=== PATIENT | male | born 1945 | race Caucasian/White ===

== ENCOUNTER 2018-09-05 05:56 | Inpatient (IN) ==
[2018-09-04 17:29] LABS: Hematocrit [HCT] 40.7 % (42.0-52.0); Hemoglobin [HGB] 13.4 g/dL (14.0-18.0); MEAN CORPUSCULAR HEMOGLOBIN 33.4 PG (27-31); MEAN CORPUSCULAR HGB CONC 32.9 g/dL (33-37); MEAN CORPUSCULAR VOLUME 101.5 FL (80-90); MEAN PLATELET VOLUME 9.6 FL (7.4-12.2); RED BLOOD COUNT 4.01 10^6/uL (4.70-6.10)
[2018-09-05] MEDS ORDERED: Lactated Ringers 1,000 ML PRIMARY IV SCH ×2 (06:00→12:59)
[2018-09-05] MEDS ORDERED: LIDOCAINE W/ SODIUM BICARB 0.5 ML SYR SUBD PRN (06:00)
[2018-09-05] MEDS ORDERED: Nasal Sanitizer POPSWAB ampule 3 AMP (Nozin) PREOP DOSE ENOS SCH (06:00)
[2018-09-05] MEDS ORDERED: ceFAZolin Inj 2gm (Premix) 2 GM/50 ML BAG IV ONE ×2 (06:00→06:06)
[2018-09-05] MEDS ORDERED: Lactated Ringers 1,000 ML PRIMARY IV ONE ×3 (06:06→14:54)
[2018-09-05] MEDS ORDERED: LIDOCAINE W/ SODIUM BICARB 0.5 ML SYR ONE (06:06)
[2018-09-05] MEDS ORDERED: MIDAZOLAM 5 MG/1 ML ONE (06:23)
[2018-09-05] MEDS ORDERED: fentaNYL Inj 250 MCG/5 ML VIAL ONE ×2 (06:23→08:18)
[2018-09-05] MEDS ORDERED: BUPIVACAINE 0.25% W/ EPI - 10 ML VIAL ONE (06:24)
[2018-09-05] MEDS ORDERED: PROPOFOL 10 MG/1 ML (200 MG/20 ML) VIAL IV ONE (06:25)
[2018-09-05] MEDS ORDERED: Acetaminophen 1000mg Inj 1,000 MG/100 ML VIAL IV ONE (06:37)
[2018-09-05] MEDS ORDERED: LIDOCAINE 2%/ EPI 1:200,000 - 20 ML VIAL ONE (06:37)
[2018-09-05] MEDS ORDERED: LIDOCAINE MPF 2% - 5 ML (20 MG/1 ML) ONE (06:49)
[2018-09-05] MEDS ORDERED: ROCURONIUM 10 MG/1 ML - 5 ML VIAL IVP ONE (06:50)
[2018-09-05] MEDS ORDERED: FAMOTIDINE 20 MG/2 ML VIAL IVP ONE (06:50)
[2018-09-05] MEDS ORDERED: KETAMINE HCL 100 MG/2 ML SYRINGE IV ONE (06:50)
[2018-09-05] MEDS ORDERED: Ketorolac Inj 30 MG, Morphine Inj (Ortho Cocktail) 5 MG, BUPivacaine Inj 0.25% PF 150 MG SPLASH ONE ×3 (06:57)
[2018-09-05] MEDS ORDERED: LORazepam 2 MG/1 ML VIAL ONE (07:01)
[2018-09-05] MEDS ORDERED: BACITRACIN 50,000 UNIT VIAL IRRIG ONE (07:01)
[2018-09-05] MEDS ORDERED: BUPivacaine Liposome/PF (Exparel) Inj 20ml vial INFIL ONE (07:02)
[2018-09-05] MEDS ORDERED: Sodium Chloride 0.9% vial 60 ML ONE (07:02)
[2018-09-05 07:18] LABS: BILIRUBIN,URINE NEGATIVE (NEG); CLARITY,URINE CLEAR (CLEAR); COLOR,URINE YELLOW (Y); GLUCOSE, URINE (UA) NEGATIVE (NEG); PH,URINE 5.5 (5.0-8.5); PROTEIN,URINE NEGATIVE (NEG); UROBILINOGEN,URINE 0.2 EU/dL (0.2)
[2018-09-05 07:29] LABS: OCCULT BLOOD,URINE TRACE (NEG); WBC,URINE RARE
[2018-09-05 07:30] LABS: RENAL EPITHELIAL CELLS,URINE FEW
[2018-09-05 07:32] LABS: URINE SAMPLE TYPE CATH SPECIMEN
[2018-09-05] MEDS ORDERED: TRANEXAMIC ACID 1,000 MG / 10 ML VIAL ONE ×4 (08:08→15:45)
[2018-09-05 09:05] LABS: WBC, BODY FLUID 0.726 10*3/uL
[2018-09-05] MEDS ORDERED: ePHEDrine Inj 50 MG/ML AMP ONE (09:56)
--- NOTE | 2018-09-05 11:50 | ORTHO.OP ---
Surgery Date: 09/05/18 Preoperative Diagnosis: right malrotated TKA Postoperative Diagnosis: same Procedure: Right TKA revision Surgeon: Ángel Orlando MD Pole Truck Driver: Shannen Franklin PA-C Anesthesia Provider: Claudia Hayes CRNA Anesthesia Type: General, Regional (adductor canal block) Estimated Blood Loss (mL): 350 Fluids: 2700mL LR Pathology: synovial fluid cultures
[2018-09-05 12:07] LABS: BASOPHILS # (AUTO) 0.03 10*3/UL; BASOPHILS % (AUTO) 0.3 % (0-1); EOSINOPHILS # (AUTO) 0.11 10*3/UL; Hematocrit [HCT] 38.1 % (42.0-52.0); Hemoglobin [HGB] 12.4 g/dL (14.0-18.0); LYMPHOCYTES # (AUTO) 1.86 10*3/uL; MEAN CORPUSCULAR HEMOGLOBIN 33.2 PG (27-31); MEAN CORPUSCULAR HGB CONC 32.5 g/dL (33-37); MEAN CORPUSCULAR VOLUME 102.1 FL (80-90); MEAN PLATELET VOLUME 9.1 FL (7.4-12.2); MONOCYTES % (AUTO) 7.1 % (5-15); NEUTROPHILS # (AUTO) 8.52 10*3/UL; RED BLOOD COUNT 3.73 10^6/uL (4.70-6.10)
[2018-09-05 12:08] LABS: PLATELET MORPHOLOGY COMMENT NORMAL MORPHOLOGY (NORM); RBC MORPHOLOGY COMMENT NORMAL MORPHOLOGY (NORM); WBC MORPHOLOGY COMMENT NORMAL MORPHOLOGY (NORM)
[2018-09-05 12:21] LABS: BLOOD UREA NITROGEN 12 mg/dL (7-22); BUN/CREATININE RATIO 13.33 (6-20); SERUM ALBUMIN 3.8 g/dL (3.5-4.8)
--- NOTE | 2018-09-05 12:26 | DI ---
XR KNEE 1 OR 2 VWS 09/05/2018 11:36 AM HISTORY: [facility] DI ^right knee OA Comparison: None. Findings: Portable AP and crosstable lateral views of the right knee show postsurgical changes consis tent with total knee arthroplasty. There is no evidence of hardware fracture or loosening. Gas is not ed in the superficial soft tissues in the distribution of the joint space, an expected finding in the immediate postoperative timeframe. There is no acute fracture or dislocation. No suprapatellar joint effusion is present. Atheromatous calcifications are noted in the distribution of the vasculature. Impression: Status post right total knee arthroplasty without evidence of hardware failure or acute o sseous abnormality.
[2018-09-05] MEDS ORDERED: ONDANSETRON 4 MG/2 ML VIAL IVP PRN ×2 (12:59→15:08)
[2018-09-05] MEDS ORDERED: HYDROcodone-APAP 7.5 MG-325 MG TABLET PO PRN (12:59)
[2018-09-05] MEDS ORDERED: LIDOCAINE HCL 2 % 10 ML JELLY URO-JECT TOPICAL PRN (12:59)
--- NOTE | 2018-09-05 14:49 | CONSULT ---
Consult Note - Consult Reason for Consult: PostOp Consulation : Ortho Requesting Physician: Dr. Orlando Primary Care Provider: Bj Ceja MD - History of Present Illness History of Present Illness: This very nice 73-year-old gentleman with history of Parkinson's disease is status post the shoulder surgery was called to the bedside because the code was called no CPR was initiated patient was given Narcan and woke up and the his sats normalized on 100% nonrebreather most likely secondary to anesthesia postop with most likely underlying lung disease patient is not coherent and talkative photosensitive is recognizes has no chest pain nausea or vomiting Past Medical History Medical History: Parkinson's disease, depression, hypercholesterolemia Tobacco Use: Former Smoker In the Past 12 Months, Have Used or Abuse Any of the Following Substance: None Review of Systems - Review of Systems All Systems: Reviewed & No Additional Complaints Except as Stated Medication / Allergies Home Medications: Home Medications Medication Instructions Recorded Confirmed Type aspirin 81 mg tablet,delayed 81 mg PO QDAY 06/21/18 09/04/18 History release atorvastatin 40 mg tablet 40 mg PO QDAY #30 tab 06/21/18 09/05/18 Rx carbidopa 25 mg-levodopa 100 mg 3 tab PO TID #270 tab 06/21/18 09/05/18 Rx tablet cholecalciferol (vitamin D3) 2,000 2,000 unit PO QDAY 06/21/18 09/05/18 History unit capsule ferrous sulfate 325 mg (65 mg 325 mg PO QDAY tab 06/21/18 09/05/18 History iron) tablet fluoxetine 20 mg capsule 60 mg PO QDAY #90 cap 06/21/18 09/05/18 Rx folic acid 400 mcg tablet 0.4 mg PO QDAY 06/21/18 09/05/18 History imatinib 100 mg tablet 300 mg PO QDAY tab 06/21/18 09/05/18 History multivitamin tablet 1 tab PO QAM 06/21/18 09/05/18 History olanzapine 5 mg tablet 5 mg PO QDAY #30 tab 06/21/18 09/05/18 Rx ranitidine 150 mg tablet 150 mg PO BID #60 tab 06/21/18 09/05/18 Rx tramadol 50 mg tablet 100 mg PO Q8H PRN #90 tab 06/21/18 09/05/18 Rx vitamin B complex tablet 1 tab PO QDAY 06/21/18 09/05/18 History alprazolam 2 mg tablet 2 mg PO BID #60 tab 08/08/18 09/05/18 Rx Cephalexin [Keflex] 500 mg PO Q8HR #30 cap 09/05/18 Rx Hydrocodone/Acetaminophen 1 - 2 ea PO Q4-6H PRN #70 tab 09/05/18 Rx [Hydrocodon-Acetaminoph 7.5-325] Rivaroxaban [Xarelto] 10 mg PO DAILY #12 tab 09/05/18 Rx Allergies/Adverse Reactions: Allergies Allergy/AdvReac Type Severity Reaction Status Date / Time No Known Allergies Allergy Verified 09/05/18 13:11 Exam - Vitals Vital Signs: Vital Signs Temperature 97 F Temperature Source Temporal Artery Scan Pulse Rate [Pulse Oximeter] 72 Pulse Rate 85 Respiratory Rate 16 Blood Pressure [Left Arm] 184/100 Blood Pressure 166/86 Pulse Ox 90 Oxygen Flow Rate 5 Oxygen Delivery Method Mask-Simple Height 5 ft 6 in Weight 180 lb - General General Appearance: No Acute Distress, Cooperative - Respiratory Respiratory Exam: POSITIVE: Decreased Breath Sounds - Cardiovascular Cardiovascular Exam: POSITIVE: RRR, No Murmur, No Clicks, No Gallops, No Rubs, PMI Non-Displaced - GI/Abdominal GI/Abdominal Exam: POSITIVE: Normal Bowel Sounds, Non Tender, Non Distended, Soft, No Masses, No Hepatomegaly, No Splenomegaly, No Organomegaly - Extremities Extremities Exam: POSITIVE: No Clubbing Present, No Edema Present - Neurological Neurological Exam: POSITIVE: Alert, No Facial Droop, Speech Intact / Clear, M oves All Extremities Equally Results - Labs CBC and BMP: 09/05/18 12:07 09/05/18 12:07 Assessment and Plan - Patient Problems (1) Respiratory arrest Current Visit: Yes Status: Acute Comment: Narcan was given to the patient Dr. Mcgowan responded to the code patient awakened this soon thereafter ABG reveals some acidosis of 7.30 and a PCO2 of 48 will transfer patient to the ICU and put him on BiPAP repeat gases later this evening I discussed the case with the family and nursing on agreement most likely postanesthesia effect. Would recommend using IV Tylenol for pain control if possible with this patient troponins were also negative Code(s): R09.2 - Respiratory arrest (2) S/P shoulder surgery Current Visit: Yes Status: Acute Comment: Defer to Dr. Orlando for PTOT orders anticoagulation and pain control Code(s): Z98.890 - Other specified postprocedural states (3) Gastro-esophageal reflux Current Visit: No Status: Chronic Code(s): K21.9 - Gastro-esophageal reflux disease without esophagitis Qualifiers: (4) Hypercholesterolemia Current Visit: No Status: Chronic Code(s): E78.00 - Pure hypercholesterolemia, unspecified (5) Parkinsons Current Visit: No Status: Chronic Code(s): G20 - Parkinson's disease (6) Anxiety Current Visit: No Status: Chronic Code(s): F41.9 - Anxiety disorder, unspecified (7) Chronic lymphocytic leukemia Current Visit: No Status: Chronic Code(s): C91.90 - Lymphoid leukemia, unspecified not having achieved remission
[2018-09-05] MEDS ORDERED: Magnesium Sulfate 2gm (Premix) 2 GM/50 ML BAG IV ONE ×2 (14:50→15:08)
[2018-09-05] MEDS: HYDROcodone-APAP 7.5 MG-325 MG TABLET PO PRN (15:50)
[2018-09-05] MEDS: Lactated Ringers 1,000 ML PRIMARY IV SCH (15:51)
[2018-09-05] MEDS ORDERED: ceFAZolin Inj 2gm (Premix) 2 GM/50 ML BAG IV SCH (16:00)
--- NOTE | 2018-09-05 16:25 | EKG ---
[address] [address] Measurements Intervals [place] Rate: 73 P: 46 UT: 179 QRS: -32 QRSD: 108 T: 69 QT: 378 QTc: 405 Interpretive Statements SINUS RHYTHM WITH SINUS ARRHYTHMIA MARKED LEFT AXIS DEVIATION [QRS AXIS < -30] Compared to ECG 08/07/2018 09:50:41 Incomplete right bundle-branch block no longer present Electronically Signed On 09-06-18 15:26:42 MST by Nelson Gleason MD [email or web address]
[2018-09-05 16:48] LABS: ABG BASE EXCESS -3 MMOL/L (-2-2); ABG OXYGEN SATURATION 99 % (90-100); ABG PCO2 48 MMHG (34-38); ABG PO2 138 MMHG (65-75); ALLEN TEST N; COLLECTION SITE R RADIAL
[2018-09-05] MEDS: ceFAZolin Inj 2gm (Premix) 2 GM/50 ML BAG IV SCH ×2 (16:58→23:12)
[2018-09-05] MEDS: Carbidopa/Levodopa 25/100mg Tab PO SCH ×2 (16:58→22:40)
[2018-09-05] MEDS ORDERED: DOCUSATE 100 MG CAPSULE PO SCH (21:00)
[2018-09-05] MEDS ORDERED: ATORVASTATIN 40 MG TABLET PO SCH (21:00)
[2018-09-05] MEDS: DOCUSATE 100 MG CAPSULE PO SCH (21:26)
[2018-09-05 21:46] LABS: VENOUS PH 7.3 (7.32-7.42)
[2018-09-05 21:47] LABS: VENOUS PH 7.36 (7.32-7.42)
--- NOTE | 2018-09-05 23:24 | CRNA.PROCE ---
Nerve Block Documentation - - Type of Nerve Block Used: Right Adductor Canal Nerve Block Position for Nerve Block: Supine Moniters Used During Block: EKG, SPO2 Oxygen Supplemented: Yes Sedation Used - Enter Amount in Comment Field [ANES.SEDAT]: Midazolam (mg): Yes (1.5), Fentanyl (mcg): Yes (25) Skin Prep Used: ChloroPrep Draped: No Technique: Ultrasound Nerve Block Needle Used: 100 mm ProBlk II Local Anesthetic - Enter Amt in Comment Field [ANES.LOCNB]: 0.5 % Bupivicaine with Epinephrine 1:200,000 (mL): Yes (20cc), 2 % Xylocaine with Epinephrine 1:200,000 (mL): Yes (20cc) - - PreOp Block : Time In: 07:25 PreOp Block : Time Out: 07:37 Anesthesia Time - Other Weight: 81.647 kg Height: 5 ft 6 in Body Mass Index (BMI): 29.0
--- NOTE | 2018-09-05 23:25 | CRNA.PROGR ---
Anesthesia Time - Procedure/Recovery Time Start Date: 09/05/18 Anesthesia : Time In: 07:46 Anesthesia : Time Out: 11:57 - Block Time PreOp Block : Time In: 07:25 PreOp Block : Time Out: 07:37 - Other Weight: 81.647 kg Height: 5 ft 6 in Body Mass Index (BMI): 29.0 Physical Status: P3 Anesthesia Type: General Anesthesia : LMA
[2018-09-06] MEDS: Lactated Ringers 1,000 ML PRIMARY IV SCH (01:02)
[2018-09-06] MEDS: HYDROcodone-APAP 7.5 MG-325 MG TABLET PO PRN ×5 (03:15→20:47)
[2018-09-06 06:20] LABS: BASOPHILS # (AUTO) 0.02 10*3/UL; BASOPHILS % (AUTO) 0.2 % (0-1); EOSINOPHILS # (AUTO) 0.17 10*3/UL; EOSINOPHILS % (AUTO) 1.8 % (0-8); Hematocrit [HCT] 29.7 % (42.0-52.0); LYMPHOCYTES # (AUTO) 2.03 10*3/uL; MEAN CORPUSCULAR HEMOGLOBIN 34.2 PG (27-31); MEAN CORPUSCULAR HGB CONC 33.7 g/dL (33-37); MEAN CORPUSCULAR VOLUME 101.7 FL (80-90); MEAN PLATELET VOLUME 9.1 FL (7.4-12.2); MONOCYTES # (AUTO) 1.09 10*3/UL (0.3-0.8); MONOCYTES % (AUTO) 11.2 % (5-15); NEUTROPHILS # (AUTO) 6.36 10*3/UL; NEUTROPHILS % (AUTO) 65.7 % (50-80); RED BLOOD COUNT 2.92 10^6/uL (4.70-6.10)
[2018-09-06 06:24] LABS: PLATELET MORPHOLOGY COMMENT NORMAL MORPHOLOGY (NORM); RBC MORPHOLOGY COMMENT NORMAL MORPHOLOGY (NORM); WBC MORPHOLOGY COMMENT NORMAL MORPHOLOGY (NORM)
[2018-09-06 06:25] LABS: VENOUS PH 7.42 (7.32-7.42)
[2018-09-06 06:27] LABS: BLOOD UREA NITROGEN 11 mg/dL (7-22); BUN/CREATININE RATIO 12.22 (6-20)
--- NOTE | 2018-09-06 06:36 | PDOC(PROG) ---
Interval History: Vitals are stable good urine output uneventful night patient looks great today does not remember anything of what happened yesterday he is back to his normal self Objective : Data - Labs CBC and BMP: 09/06/18 06:17 09/06/18 06:17 Objective : Exam - General General Appearance: Cooperative - Respiratory Respiratory Exam: Clear to Auscultation - Bilaterally, Breathing Non Labored, Normal To Percussion, Normal to Percussion and Palpation - Cardiovascular Cardiovascular Exam: RRR, No Murmur, No Clicks, No Gallops, No Rubs, PMI Non- Displaced - GI/Abdominal GI/Abdominal Exam: Normal Bowel Sounds, Non Tender, Non Distended, Soft, No Masses, No Hepatomegaly, No Splenomegaly, No Organomegaly Assessment and Plan - Patient Problems (1) Respiratory arrest Current Visit: Yes Status: Acute Comment: We initiated BiPAP last evening with the night respiratory therapist after 2 hours blood gases were improved BiPAP was kept on overnight with some breaks this morning's blood gases are within normal limits. I believe the patient is stable now just on oxygen . Proxy a most likely secondary to anesthesia with most likely underlying lung disease Code(s): R09.2 - Respiratory arrest (2) S/P shoulder surgery Current Visit: Yes Status: Acute Comment: Further Dr. Orlando for PTOT and anticoagulation and pain Code(s): Z98.890 - Other specified postprocedural states (3) Gastro-esophageal reflux Current Visit: No Status: Chronic Comment: Continue PPI Code(s): K21.9 - Gastro-esophageal reflux disease without esophagitis Qualifiers: (4) Hypercholesterolemia Current Visit: No Status: Chronic Comment: Continue statin Code(s): E78.00 - Pure hypercholesterolemia, unspecified (5) Parkinsons Current Visit: No Status: Chronic Comment: Continue usual home meds Code(s): G20 - Parkinson's disease (6) Coronary artery disease Current Visit: Yes Status: Acute Comment: Organs were negative patient stress test in July 2018 showed the large fixed defect but no reversible defects Code(s): I25.10 - Atherosclerotic heart disease of [place] coronary artery without angina pectoris
[2018-09-06] MEDS: Carbidopa/Levodopa 25/100mg Tab PO SCH ×3 (08:23→14:29)
[2018-09-06] MEDS: DOCUSATE 100 MG CAPSULE PO SCH ×2 (08:24→20:47)
[2018-09-06] MEDS ORDERED: FLUoxetine 20 MG CAPSULE PO SCH (09:00)
[2018-09-06] MEDS ORDERED: FERROUS SULFATE 325 MG TABLET PO SCH (09:00)
[2018-09-06] MEDS ORDERED: ASPIRIN EC 81 MG TABLET PO SCH (09:00)
[2018-09-06] MEDS ORDERED: ENOXAPARIN SODIUM 30 MG/0.3 ML SYRINGE SUBCUT SCH ×2 (09:00)
[2018-09-06] MEDS ORDERED: OLANZapine Tab 5 MG TAB PO SCH (09:00)
[2018-09-06] MEDS ORDERED: IMATINIB MESYLATE 300 MG PO SCH (09:30)
[2018-09-06] MEDS ORDERED: ONDANSETRON 4 MG/2 ML VIAL IVP PRN (10:56)
--- NOTE | 2018-09-06 11:21 | CRNA.PROGR ---
Anesthesia Note - Progress Notes Anesthesia Progress Note: Visted with Pt yesterday after the code. He was watching TV and eating chicken. I believe his apnea is a hand buffer problem, per his . He received minimal IV short acting narcotic many hours prior to his obstruction. I visited with both of them this AM his looks fine, I put a flat malleable ice pack under his knee. He has no complaints. SERGEY Sandoval
--- NOTE | 2018-09-06 14:42 | PT.PROG ---
Progress Note Progress Note: S: pt reports he is doing fair. reports he uses a depends usually and needs a new brief because he is wet. O: nsg okay'd prior to PT. pt instructed in sit to stand 4 reps with seated rest break in between with min assist x2 and last transfer mod assist to max assist on last transfer to get into bed. pt demo significant shakiness during transfers and demo difficulty bearing weight on RLE. pt instructed to ambulate 3 steps with walker with min assist x 2, backwards steps pt requires mod assist x 2 and max assist to get back into bed with walker. pt left in bed with call light within reach and nsg notified of progress A: pt tolerated therapy fair to poor, poor activity tolerance and demo difficulty standing and requires cues for thoracic extension. pt continues to benefit from skilled therapy. P: cont per POC
--- NOTE | 2018-09-06 15:57 | PTI REPORT ---
Thank you for the referral of Yang Guillen. He was seen on 09/06/18 for an inpatient evaluation status post right total knee arthroplasty. SUBJECTIVE: The patient is a 73-year-old male. The patient reports that he lives in [facility] with his . The patient has a four wheeled walker at home that he was using previously. The patient reports he has Parkinson's disease. The patient reports pain is minimal. The patient is not on oxygen at home. PAST MEDICAL HISTORY: Past medical history can be found in the patient's medical record. OBJECTIVE FINDINGS: General observations: Nursing okayed treatment prior to PT. The patient was in ICU room. The patient is on one liter of oxygen and connected to all lines and leads. The patient was fit for an IROM brace. Bed mobility: The patient requires min assist x1 for supine to sit transfer to edge of bed. Transfers: The patient requires min assist x2 for sit to stand transfer with walker. Ambulation: The patient demonstrated unsteady standing balance and shakiness, so the patient was not instructed to ambulate at this time. The patient was instructed in weight shifting with contact guard to min assist x2 for safety. The patient was able to client care coordinator five minute intervals. ASSESSMENT: The patient is a 73-year-old male who is status post total knee replacement. The patient demonstrates decreased strength, decreased functional mobility, and decreased endurance. The patient would benefit from skilled therapy in order to improve overall mobility and to return to prior level of function. The patient's prognosis for therapy is fair. Short-Term Goals: To be met by discharge from inpatient: Patient will be independent with transfers with walker. Patient will be able to ambulate 150 feet with walker. Patient will be able to tolerate 15 minutes of activity. Long-Term Goals: To be met following discharge from inpatient: Patient will be seen by outpatient physical therapy. TREATMENT PLAN: Patient will be seen B.I.D during the week and one time per day over the weekend as an inpatient for therapeutic exercise, functional mobility, neuromuscular reeducation, gait training, and range of motion as needed. INITIAL TREATMENT: Treatment today consisted of the initial evaluation. The patient was issued an IROM brace and CPM pads. The patient was left in bed with nursing staff present. KRAEN
[2018-09-06] MEDS: ATORVASTATIN 40 MG TABLET PO SCH (20:47)
[2018-09-06] MEDS: ENOXAPARIN SODIUM 30 MG/0.3 ML SYRINGE SUBCUT SCH (20:47)
[2018-09-07 05:07] LABS: BASOPHILS # (AUTO) 0.03 10*3/UL; BASOPHILS % (AUTO) 0.3 % (0-1); EOSINOPHILS # (AUTO) 0.11 10*3/UL; Hematocrit [HCT] 30.7 % (42.0-52.0); Hemoglobin [HGB] 10.1 g/dL (14.0-18.0); LYMPHOCYTES # (AUTO) 2.27 10*3/uL; MEAN CORPUSCULAR HGB CONC 32.9 g/dL (33-37); MEAN CORPUSCULAR VOLUME 103.4 FL (80-90); MEAN PLATELET VOLUME 9.5 FL (7.4-12.2); MONOCYTES # (AUTO) 1.22 10*3/UL (0.3-0.8); MONOCYTES % (AUTO) 10.7 % (5-15); NEUTROPHILS # (AUTO) 7.74 10*3/UL; RED BLOOD COUNT 2.97 10^6/uL (4.70-6.10)
[2018-09-07 05:24] LABS: PLATELET MORPHOLOGY COMMENT NORMAL MORPHOLOGY (NORM); RBC MORPHOLOGY COMMENT NORMAL MORPHOLOGY (NORM); WBC MORPHOLOGY COMMENT NORMAL MORPHOLOGY (NORM)
[2018-09-07 05:30] LABS: BLOOD UREA NITROGEN 10 mg/dL (7-22)
[2018-09-07] MEDS: FERROUS SULFATE 325 MG TABLET PO SCH (07:43)
[2018-09-07] MEDS: Carbidopa/Levodopa 25/100mg Tab PO SCH ×3 (07:44→21:27)
[2018-09-07] MEDS ORDERED: OLANZapine Tab 5 MG TAB PO SCH (09:00)
[2018-09-07] MEDS: ENOXAPARIN SODIUM 30 MG/0.3 ML SYRINGE SUBCUT SCH ×2 (09:20→21:26)
[2018-09-07] MEDS: HYDROcodone-APAP 7.5 MG-325 MG TABLET PO PRN ×3 (09:20→21:26)
[2018-09-07] MEDS: DOCUSATE 100 MG CAPSULE PO SCH ×2 (09:21→21:28)
[2018-09-07] MEDS: ASPIRIN EC 81 MG TABLET PO SCH (09:21)
[2018-09-07] MEDS: IMATINIB MESYLATE 100 MG PO SCH (09:21)
[2018-09-07] MEDS: FLUoxetine 20 MG CAPSULE PO SCH (09:21)
--- NOTE | 2018-09-07 10:16 | ORTHO.PROG ---
Last Taken Vital Signs: Vital Signs - Last Taken Temperature 98.3 F 09/07/18 09:00 Pulse Rate 91 09/07/18 09:00 Respiratory Rate 24 09/07/18 09:00 Blood Pressure 109/56 09/07/18 09:00 Pulse Ox 95 09/07/18 09:00 Subjective: Patient is POD 2 from Right TKA revision and reportedly is doing well and pain is well controlled. Objective: Laboratory Results 09/06/18 09/07/18 09/07/18 11:30 04:05 04:05 WBC 11.38 H RBC 2.97 L Hgb 10.1 L Hct 30.7 L MCV 103.4 H MCH 34.0 H MCHC 32.9 L RDW Std Deviation 52.2 H RDW Coeff of Dm 14.3 Plt Count 161 MPV 9.5 Immature Gran % (Auto) 0.1 Neut % (Auto) 68.0 Lymph % (Auto) 19.9 [place] % (Auto) 10.7 Eos % (Auto) 1.0 Baso % (Auto) 0.3 Immature Gran # (Auto) 0.01 Neut # (Auto) 7.74 Lymph # (Auto) 2.27 [place] # (Auto) 1.22 H Eos # (Auto) 0.11 Baso # (Auto) 0.03 WBC Morphology Comment Normal morphology Plt Morphology Comment Normal morphology RBC Morph Comment Normal morphology Sodium 136 Potassium 3.9 Chloride 103 Carbon Dioxide 27 Anion Gap 6 BUN 10 Creatinine 0.8 BUN/Creatinine Ratio 12.50 Glucose 104 Calculated Osmolality 280.0 Calcium 8.7 Troponin I 0.094 H -Dressing is clean, dry, and intact. NV intact. Negative calf tenderness. -labs reviewed: H/H is stable 06/20 -hutchins discontinued Assessment: POD 2 from Right TKA revision stable and doing well Plan: * DVT ppx: discharged home with Xarelto 10mg 1 tablet daily x 10 days then transition to ASA 81mg 1 tablet daily x 6 weeks; discharge home with portable SCD devices * continue Ancef 2g IV every 8 hours while in hospital then discharge home with Keflex 500mg TID x 10 days * Wound care: discontinue dressing on POD 3 then shower as normal, do not soak incision x 4 weeks * pain meds: continue hydrocodone 7.5/325mg 1-2 tabs PO every 4-6 hours prn pain * PT: continue outpatient PT upon discharge * WBAT with walker * discharge home once cleared by PT and hospitalist * follow-up with orthopedics in 2 weeks as scheduled
--- NOTE | 2018-09-07 14:13 | PDOC(PROG) ---
Date of Service: 09/07/18 Time of Service: 14:00 Interval History: Subjective Patient was laying in bed doesn't appear in distress. He has a history of Parkinson disease, panic attack on Xanax, was diagnosed many years ago with sleep apnea however he could not tolerate his machine so is not wearing it. According to the was doing okay until a month ago when she started to notice some problem with his breathing. Also history of CML on Gleevec. He did see cardiology before surgery because of abnormal stress test. Objective : Data - Labs CBC and BMP: 09/07/18 04:05 09/07/18 04:05 Objective : Exam - General General Appearance: No Acute Distress, Cooperative - Head Head Exam: Normal Inspection - Eye Eye Exam: Normal Appearance - ENT ENT Exam: Normal Exam - Neck Neck Exam: Normal Inspection - Respiratory Respiratory Exam: Clear to Auscultation - Bilaterally - Cardiovascular Cardiovascular Exam: RRR - GI/Abdominal GI/Abdominal Exam: Normal Bowel Sounds, Non Tender, Non Distended, Soft, No Organomegaly - Rectal Rectal Exam: Deferred - External Exam: Deferred - Extremities Additional Extremities Exam Details: Dressing applied to the right knee. - Back Back Exam: Normal Inspection - Neurological Neurological Exam: Alert, Oriented x 3, CN II-XII Intact, No Facial Droop, Speech Intact / Clear - Psychiatric Psychiatric Exam: Normal Affect - Integumentary Integumentary Exam: Normal Color Assessment and Plan - Patient Problems (1) Status post right knee replacement Current Visit: Yes Status: Acute Comment: Patient had the revision of for total knee, continue PT and OT. For DVT prophylaxis he is on Lovenox. Continue current pain medication. Code(s): Z96.651 - Presence of right artificial knee joint (2) Respiratory arrest Current Visit: Yes Status: Acute Comment: This is resolved. Per my discussion with the nurses sounded like it's was more a hypoxic event. They attributed that to the anesthetic and that seemed to be resolved. He did have some CO2 retention and that's resolved. Code(s): R09.2 - Respiratory arrest (3) Hypercholesterolemia Current Visit: No Status: Chronic Comment: Same meds Code(s): E78.00 - Pure hypercholesterolemia, unspecified (4) Parkinsons Current Visit: No Status: Chronic Comment: Apparently he is on Sinemet 2 tablets 3 times a day and will put him back on that regimen. Code(s): G20 - Parkinson's disease (5) Gastro-esophageal reflux Current Visit: No Status: Chronic Comment: We'll put him back on ranitidine Code(s): K21.9 - Gastro-esophageal reflux disease without esophagitis Qualifiers: (6) Coronary artery disease Current Visit: Yes Status: Acute Comment: There was a slight bump in his troponin yesterday we'll recheck it again today he need follow-up with cardiology. He is on aspirin. His blood pressure is borderline so I don't think he will tolerate additional medications. He is denying chest pain or shortness of breast though. Code(s): I25.10 - Atherosclerotic heart disease of [place] coronary artery without angina pectoris (7) History of anxiety Current Visit: Yes Status: Acute Comment: Patient is normally on Xanax twice a day for quite a few years according to the . They've held that because of the hypoxic event that he had. Him and his requesting to go back on the Xanax. I think we'll try a low dosage tonight we'll see how things look tomorrow and then will decide if he can tolerate morning dose. He is also on Zyprexa and he usually takes it at night. He did receive it morning so we'll change the dosage to nighttime s tarting tomorrow night. Code(s): Z86.59 - Personal history of other mental and behavioral disorders
--- NOTE | 2018-09-07 16:32 | OTI REPORT ---
Thank you for the referral of Yang Guillen. He was seen on 09/07/18 for an occupational therapy inpatient evaluation status post right total knee arthroplasty. SUBJECTIVE: The patient is a 73-year-old male. The patient reports that he has just moved back to [place] again from [place] with his . They currently live in [place] [facility]. They live on the fifth floor so they use the elevator to get into and out of the home. [employer] set up includes a walk-in shower with a built in stool to sit on, grab bars within the shower, grab bars by the toilet, and a comfort height toilet. At prior level of function the patient was using a wheeled walker. He was independent with dressing. He was not driving. The patient does have Parkinson's, which is usually well controlled with minimal tremors. The patient lives with his who is able to provide some assistance at home. The patient currently reports a pain level of 1/10 on the verbal analog scale (0=no pain, 10=worst pain) in the right knee. This was a revision of a right total knee as he did have difficulty straightening the knee at prior level of function. Following surgery this time around the patient did have a code blue called. He is currently stable per nursing report at this time. The patient reports he wants to improve his ability to walk. PAST MEDICAL HISTORY: Past medical history can be found in the patient's medical record. OBJECTIVE FINDINGS: General observations: The patient is currently on one liter of oxygen; however, he is not on oxygen at home. The patient was oriented to person, place, and reason for hospitalization. He was not oriented to date. Range of motion: Upper extremity range of motion is within functional limits for bilateral shoulders, elbows, hands, and wrists. Strength: Upper extremity strength is 3+/5 for bilateral shoulders and 4/5 for the elbow, hand, and wrist bilaterally. Bed mobility: The patient demonstrated the ability to complete bed mobility from sitting upright in bed to sitting edge of bed with moderate assistance. Transfers: The patient completed a sit to stand transfer with moderate assistance and ambulated five feet with minimal assistance with verbal cues. Activities of daily living: The patient completed lower extremity dressing with max assist and upper extremity dressing with set up assistance. The patient completed a bed bath with set up assistance for upper extremities. For lower extremity washing and brittni care, the patient required min assist with verbal cues to remain standing while he was assisted in washing due to some increased shakiness. The patient is incontinent and wears a brief. ASSESSMENT: Problem List: Decreased ability to complete lower and upper extremity dressing. Decreased standing activity tolerance Decreased balance Decreased functional mobility Decreased ability to complete functional transfers Decreased ability to complete ADLs Short-Term Goals: To be met by discharge from inpatient: Patient will increase bilateral upper extremity strength by one manual muscle grade. Patient will increase activity tolerance and standing balance to stand x8 minutes to complete standing grooming tasks with no losses of balance. Patient will complete all functional transfers including chair, bed, and toilet with contact guard assist only for safety. Patient will complete a toileting task with modified independence for changing his brief and contact guard assist for transfer, toilet hygiene, and pants management. Patient will complete lower extremity dressing tasks with minimal assistance with use of adaptive equipment as needed and will perform upper extremity dressing with set up assistance only. Long-Term Goals: To be met following discharge from inpatient: Patient will return home to [facility] and may be seen by outpatient physical therapy. TREATMENT PLAN: Patient will be seen B.I.D during the week and one time per day over the weekend as an inpatient to address the above goals and objectives. INITIAL TREATMENT: Treatment today consisted of the initial evaluation only. The patient may need additional therapy upon inpatient stay and may be moved to [facility]. The patient was issued a oil filters inspector and sock aide. KAREN
--- NOTE | 2018-09-07 16:53 | PT.PROG ---
Progress Note Progress Note: S. Patient stated that he is feeling better this morning and would like to get up and go for a walk. O. Patient ambulated 50 feet in the hurt and returned to his room where he was left in his chair with alarm and call light. A. Patient tolerated ambulation well, he was able to ambulate further than previously, he would continue to benefit from swing bed therapy to increase strength and mobility at this time. P. Continue POC.
--- NOTE | 2018-09-07 17:00 | OT.PROG ---
Progress Note Progress Note: Occupational Therapy S: Pt reports that he is feeling well with minimal pain this afternoon. O: Pt. was supine in bed upon arrival. He demonstrated the ability to move from supine to sitting EOB with min. A to move R LE. Pt. was able to perform a functional transfer x 5' to recliner with CGA. He then completed LE dressing to include donning and doffing of pants and brief with mod. A and the use of the answering service agent with verbal cues. Pt. then completed seated UE strengthening with RTB to include triceps extension, biceps curls, shoulder extension, and horizontal abduction X 20 each. A: Pt. tolerated UE strengthening well and improved with his ability to complete LE dressing from this morning. Pt. required additional time for cognitive processing today. P: Continue POC. DAVIS Powell/Da
--- NOTE | 2018-09-07 17:19 | PT.PROG ---
Progress Note Progress Note: S patient stated that he is feeling alright this afternoon. O. patient ambulated 20 feet in his room then performed long arc quads, heel toe raises, resisted knee flexion, quad sets, glute sets all x 10. seated knee flexion 3x30 seconds. Patient was left in his chair with alarm and call light. A. Patient tolerated therapy fair, he was unable to ambulate as far he felt as if his knee was giving out and was uncomfortable ambulating further, he agreed to go to the therapy gym tomorrow morning however. Patient would continue to benefit from skilled therapy possibly even swing bed for a few days to increase strength and mobility. P. continue POC.
[2018-09-07] MEDS ORDERED: RANITIDINE HCL 150 MG PO SCH (21:00)
[2018-09-07] MEDS: ATORVASTATIN 40 MG TABLET PO SCH (21:27)
[2018-09-07] MEDS: OLANZapine Tab 5 MG TAB PO SCH (21:27)
[2018-09-07] MEDS: FAMOTIDINE 20 MG TABLET PO SCH (21:27)
[2018-09-07] MEDS: ALPRAZolam Tab 0.25 MG TABLET PO SCH (21:27)
[2018-09-08 06:51] LABS: BASOPHILS # (AUTO) 0.05 10*3/UL; BASOPHILS % (AUTO) 0.5 % (0-1); EOSINOPHILS # (AUTO) 0.24 10*3/UL; EOSINOPHILS % (AUTO) 2.4 % (0-8); Hematocrit [HCT] 28.6 % (42.0-52.0); Hemoglobin [HGB] 9.4 g/dL (14.0-18.0); LYMPHOCYTES # (AUTO) 2.41 10*3/uL; MEAN CORPUSCULAR HEMOGLOBIN 33.7 PG (27-31); MEAN CORPUSCULAR HGB CONC 32.9 g/dL (33-37); MEAN CORPUSCULAR VOLUME 102.5 FL (80-90); MEAN PLATELET VOLUME 9.2 FL (7.4-12.2); MONOCYTES # (AUTO) 1.23 10*3/UL (0.3-0.8); MONOCYTES % (AUTO) 12.1 % (5-15); NEUTROPHILS # (AUTO) 6.21 10*3/UL; NEUTROPHILS % (AUTO) 61.1 % (50-80); RED BLOOD COUNT 2.79 10^6/uL (4.70-6.10)
[2018-09-08] MEDS: HYDROcodone-APAP 7.5 MG-325 MG TABLET PO PRN ×4 (06:54→20:33)
[2018-09-08] MEDS: FERROUS SULFATE 325 MG TABLET PO SCH (06:54)
[2018-09-08 07:11] LABS: BLOOD UREA NITROGEN 12 mg/dL (7-22)
[2018-09-08 07:17] LABS: PLATELET MORPHOLOGY COMMENT NORMAL MORPHOLOGY (NORM); RBC MORPHOLOGY COMMENT NORMAL MORPHOLOGY (NORM); WBC MORPHOLOGY COMMENT NORMAL MORPHOLOGY (NORM)
[2018-09-08] MEDS: Carbidopa/Levodopa 25/100mg Tab PO SCH ×3 (08:54→20:38)
[2018-09-08] MEDS: ASPIRIN EC 81 MG TABLET PO SCH (08:54)
[2018-09-08] MEDS: FAMOTIDINE 20 MG TABLET PO SCH ×2 (08:55→20:33)
[2018-09-08] MEDS: DOCUSATE 100 MG CAPSULE PO SCH ×2 (08:55→20:32)
[2018-09-08] MEDS: ENOXAPARIN SODIUM 30 MG/0.3 ML SYRINGE SUBCUT SCH ×2 (08:55→20:32)
[2018-09-08] MEDS: FLUoxetine 20 MG CAPSULE PO SCH (08:55)
[2018-09-08] MEDS: IMATINIB MESYLATE 100 MG PO SCH (08:59)
--- NOTE | 2018-09-08 09:00 | ORTHO.PROG ---
Progress Note -: Vital Signs - Last Taken Temperature 98.6 F 09/07/18 04:12 Pulse Rate 94 09/07/18 04:12 Respiratory Rate 18 09/07/18 04:12 Blood Pressure 119/58 09/07/18 04:12 Pulse Ox 93 09/07/18 04:25 Laboratory Results 09/06/18 09/07/18 09/07/18 11:30 04:05 04:05 WBC 11.38 H RBC 2.97 L Hgb 10.1 L Hct 30.7 L MCV 103.4 H MCH 34.0 H MCHC 32.9 L RDW Std Deviation 52.2 H RDW Coeff of Dm 14.3 Plt Count 161 MPV 9.5 Immature Gran % (Auto) 0.1 Neut % (Auto) 68.0 Lymph % (Auto) 19.9 [place] % (Auto) 10.7 Eos % (Auto) 1.0 Baso % (Auto) 0.3 Immature Gran # (Auto) 0.01 Neut # (Auto) 7.74 Lymph # (Auto) 2.27 [place] # (Auto) 1.22 H Eos # (Auto) 0.11 Baso # (Auto) 0.03 WBC Morphology Comment Normal morphology Plt Morphology Comment Normal morphology RBC Morph Comment Normal morphology Sodium 136 Potassium 3.9 Chloride 103 Carbon Dioxide 27 Anion Gap 6 BUN 10 Creatinine 0.8 BUN/Creatinine Ratio 12.50 Glucose 104 Calculated Osmolality 280.0 Calcium 8.7 Troponin I 0.094 H Subjective: - Postop Day [1] Objective: - Taking PO pain medication - Tolerating regular diet - No Solomon - voiding without difficulty - Ambulating - Labs and Vital Signs reviewed Assessment: - CMS intact - Prevena dressing intact Plan: - Discharge home once cleared by Physical Therapy - Nursing to provide and educated patient on changing dressing to a Silverlon dressing on postop day 7 or if Pervena losses suction before postop day 7 Laboratory Results 09/06/18 09/07/18 09/07/18 11:30 04:05 04:05 WBC 11.38 H RBC 2.97 L Hgb 10.1 L Hct 30.7 L MCV 103.4 H MCH 34.0 H MCHC 32.9 L RDW Std Deviation 52.2 H RDW Coeff of Dm 14.3 Plt Count 161 MPV 9.5 Immature Gran % (Auto) 0.1 Neut % (Auto) 68.0 Lymph % (Auto) 19.9 [place] % (Auto) 10.7 Eos % (Auto) 1.0 Baso % (Auto) 0.3 Immature Gran # (Auto) 0.01 Neut # (Auto) 7.74 Lymph # (Auto) 2.27 [place] # (Auto) 1.22 H Eos # (Auto) 0.11 Baso # (Auto) 0.03 WBC Morphology Comment Normal morphology Plt Morphology Comment Normal morphology RBC Morph Comment Normal morphology Sodium 136 Potassium 3.9 Chloride 103 Carbon Dioxide 27 Anion Gap 6 BUN 10 Creatinine 0.8 BUN/Creatinine Ratio 12.50 Glucose 104 Calculated Osmolality 280.0 Calcium 8.7 Troponin I 0.094 H Vital Signs (72 hrs) Temp Pulse Pulse Pulse Resp BP BP 09/07/18 04:25 09/07/18 04:12 98.6 F 94 18 09/07/18 01:19 98.7 F 85 16 09/06/18 21:28 98.3 F 95 20 09/06/18 11:00 97.3 F 93 20 105/46 09/06/18 10:00 98.4 F 88 18 09/06/18 09:00 98.3 F 90 18 09/06/18 08:00 98.4 F 93 16 09/06/18 07:00 98.3 F 107 H 18 09/06/18 06:00 95 18 120/59 09/06/18 05:28 09/06/18 05:00 91 16 107/52 09/06/18 04:55 98 16 09/06/18 03:59 97.2 F 89 16 122/68 09/06/18 03:00 90 86 85 16 96/85 09/06/18 02:00 91 16 98/61 09/06/18 01:00 97.7 F 84 16 09/06/18 00:00 87 15 103/53 09/05/18 23:00 80 85 16 09/05/18 22:00 80 16 09/05/18 21:00 97.5 F 75 16 09/05/18 20:00 67 16 09/05/18 19:00 83 87 18 09/05/18 18:16 86 20 09/05/18 17:00 104 H 11 L 09/05/18 16:00 98.9 F 84 15 09/05/18 13:43 97 F 72 16 184/100 09/05/18 13:10 96.8 F 80 16 164/87 09/05/18 13:09 96.8 F 80 16 164/87 09/05/18 12:41 97.7 F 85 14 166/86 09/05/18 12:31 94 12 163/85 09/05/18 12:20 96.8 F 85 12 169/87 09/05/18 12:10 85 12 166/92 09/05/18 12:00 88 12 157/82 09/05/18 11:55 90 12 149/79 09/05/18 11:50 85 12 152/80 09/05/18 11:45 96.9 F 81 12 146/85 09/05/18 07:18 98.4 F 70 16 107/66 BP Pulse Ox 09/07/18 04:25 93 09/07/18 04:12 119/58 94 09/07/18 01:19 107/52 94 09/06/18 21:28 93/56 94 09/06/18 11:00 93 09/06/18 10:00 100/56 94 09/06/18 09:00 95/60 93 09/06/18 08:00 121/62 94 09/06/18 07:00 120/59 92 09/06/18 06:00 94 09/06/18 05:28 92 09/06/18 05:00 94 09/06/18 04:55 09/06/18 03:59 96 09/06/18 03:00 09/06/18 02:00 94 09/06/18 01:00 124/67 97 09/06/18 00:00 97 09/05/18 23:00 97/60 97 09/05/18 22:00 117/77 92 09/05/18 21:00 119/75 100 09/05/18 20:00 101/64 100 09/05/18 19:00 109/59 1 09/05/18 18:16 95 09/05/18 17:00 120/96 91 09/05/18 16:00 144/87 99 09/05/18 13:43 90 09/05/18 13:10 100 09/05/18 13:09 100 09/05/18 12:41 98 09/05/18 12:31 100 09/05/18 12:20 100 09/05/18 12:10 97 09/05/18 12:00 97 09/05/18 11:55 98 09/05/18 11:50 98 09/05/18 11:45 100 09/05/18 07:18 91
--- NOTE | 2018-09-08 09:00 | ORTHO.PROG ---
Progress Note -: Vital Signs - Last Taken Temperature 98.6 F 09/07/18 04:12 Pulse Rate 94 09/07/18 04:12 Respiratory Rate 18 09/07/18 04:12 Blood Pressure 119/58 09/07/18 04:12 Pulse Ox 93 09/07/18 04:25 Laboratory Results 09/06/18 09/07/18 09/07/18 11:30 04:05 04:05 WBC 11.38 H RBC 2.97 L Hgb 10.1 L Hct 30.7 L MCV 103.4 H MCH 34.0 H MCHC 32.9 L RDW Std Deviation 52.2 H RDW Coeff of Dm 14.3 Plt Count 161 MPV 9.5 Immature Gran % (Auto) 0.1 Neut % (Auto) 68.0 Lymph % (Auto) 19.9 [place] % (Auto) 10.7 Eos % (Auto) 1.0 Baso % (Auto) 0.3 Immature Gran # (Auto) 0.01 Neut # (Auto) 7.74 Lymph # (Auto) 2.27 [place] # (Auto) 1.22 H Eos # (Auto) 0.11 Baso # (Auto) 0.03 WBC Morphology Comment Normal morphology Plt Morphology Comment Normal morphology RBC Morph Comment Normal morphology Sodium 136 Potassium 3.9 Chloride 103 Carbon Dioxide 27 Anion Gap 6 BUN 10 Creatinine 0.8 BUN/Creatinine Ratio 12.50 Glucose 104 Calculated Osmolality 280.0 Calcium 8.7 Troponin I 0.094 H Subjective: - Postop Day [2] Objective: - Taking PO pain medication - Tolerating regular diet - No Solomon - voiding incontinent - Ambulating in room - Labs and Vital Signs reviewed Assessment: - CMS intact - Prevena dressing intact Plan: - Discharge home once cleared by Physical Therapy - Nursing to provide and educated patient on changing dressing to a Silverlon dressing on postop day 7 or if Pervena losses suction before postop day 7
--- NOTE | 2018-09-08 09:08 | ORTHO.DC ---
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 Discharge Diagnosis: same Primary Surgery and Date: 09/05/2018 R Rev TKA Hospital Course: slow progress with ambulation Discharge Medications: Discharge Medications aspirin 81 mg tablet,delayed release 81 mg PO QDAY 06/21/18 [History] atorvastatin 40 mg tablet 40 mg PO QDAY #30 tab 06/21/18 [Rx] carbidopa 25 mg-levodopa 100 mg tablet 3 tab PO TID #270 tab 06/21/18 [Rx] cholecalciferol (vitamin D3) 2,000 unit capsule 2,000 unit PO QDAY 06/21/18 [History] ferrous sulfate 325 mg (65 mg iron) tablet 325 mg PO QDAY tab 06/21/18 [History] fluoxetine 20 mg capsule 60 mg PO QDAY #90 cap 06/21/18 [Rx] folic acid 400 mcg tablet 0.4 mg PO QDAY 06/21/18 [History] imatinib 100 mg tablet 300 mg PO QDAY tab 06/21/18 [History] multivitamin tablet 1 tab PO QAM 06/21/18 [History] olanzapine 5 mg tablet 5 mg PO QDAY #30 tab 06/21/18 [Rx] ranitidine 150 mg tablet 150 mg PO BID #60 tab 06/21/18 [Rx] tramadol 50 mg tablet 100 mg PO Q8H PRN #90 tab 06/21/18 [Rx] vitamin B complex tablet 1 tab PO QDAY 06/21/18 [History] alprazolam 2 mg tablet 2 mg PO BID #60 tab 08/08/18 [Rx] Cephalexin [Keflex] 500 mg PO Q8HR #30 cap 09/05/18 [Rx] Hydrocodone/Acetaminophen [Hydrocodon-Acetaminoph 7.5-325] 1 - 2 ea PO Q4-6H PRN #70 tab 09/05/18 [Rx] Rivaroxaban [Xarelto] 10 mg PO DAILY #12 tab 09/05/18 [Rx] Follow-Up: SARA GUZMAN [Primary Care Provider] - As Needed Ángel Orlando [STAFF PHYSICIAN] - 09/25/18 9:30 am (Philip) Exam - Vitals Vital Signs: Vital Signs Temperature 97 F Temperature Source Temporal Artery Scan Pulse Rate [Telemetry] 88 Pulse Rate [Apical] 78 Pulse Rate [Pulse Oximeter] 84 Pulse Rate 90 Respiratory Rate 12 Blood Pressure [Right Arm] 115/63 Blood Pressure [Left Arm] 127/64 Blood Pressure 166/86 Pulse Ox 92 Oxygen Flow Rate 1 Oxygen Delivery Method Room Air Height 5 ft 6 in Weight 80.694 kg
--- NOTE | 2018-09-08 12:09 | PT.PROG ---
Progress Note Progress Note: S. Patient stated that he is feeling a little better today, however discussed with Dr. Orlando about staying in Swing bed status for a few days. O. Patient ambulated 15 feet to the wheelchair and was wheeled to the therapy gym where he had heat to his knee and performed exercises in the form of; heel slides, quad sets, glute sets, ankle pumps, short arc quads, heel toe raises, hip abduction/adduction, straight leg raises, seated long arc quads, all x 10 bilaterally with. Patient then performed sit to stands x 5 Patient then ambulated 70 feet to the wheelchair and was wheeled back to his room and was left with call light and alarm. A. Patient tolerated therapy fair, he continues to struggle with extension and is limited with Range of motion. Patient continues to require min assist with transfers and ambulation, he would continue to benefit from skilled therapy to increase strength, endurance, and mobility at this time. P. Continue POC.
[2018-09-08] MEDS ORDERED: BACLOFEN 20 MG TABLET PO PRN (13:56)
--- NOTE | 2018-09-08 16:40 | OT.PROG ---
Progress Note Progress Note: S: pt stated that he was feeling better and wants to work on sitting up straight. O: tx consisted of toileting tasks where pt is independent in tasks and hygiene. pt completed transfer from toilet to chair with standard walker and CGA for safety. pt then completed yellow RTB exercises in all planes of motion x10 each. A: pt needed MOD verbal cues to sit up straight during exercises. pt is improving in activity tolerance and ADL performance. P: continue POC
--- NOTE | 2018-09-08 16:56 | PT.PROG ---
Progress Note Progress Note: S: pt reports he is doing fair. willing to work with PT O: nsg okay'd prior to PT. pt instructed to ambulate with CGA x 1 and standard walker approx 25 feet , instruction on stand to sit transfer to w/c. pt instructed in LAQs, seated marches all x 10 reps each. sit to stands x 10 reps with CGA x 1 and mod verbal cues for technique. trial of #2 box step up x 1 rep. PROM R knee into flexion and extension. Pt left in care of OT. A: pt tolerated therapy well today. requires cues for proper technique for transfers. pt continues to benefit from skilled therapy. P: cont per POC.
--- NOTE | 2018-09-08 17:39 | PDOC(PROG) ---
Date of Service: 09/08/18 Time of Service: 15:00 Interval History: Subjective Patient is denying complaint he feels stronger today compared to yesterday. Objective : Data - Labs CBC and BMP: 09/08/18 06:25 09/08/18 06:25 Objective : Exam - General General Appearance: No Acute Distress, Cooperative - Head Head Exam: Normal Inspection - Eye Eye Exam: Normal Appearance - ENT ENT Exam: Normal Exam - Neck Neck Exam: Normal Inspection - Respiratory Respiratory Exam: Clear to Auscultation - Bilaterally - Cardiovascular Cardiovascular Exam: RRR - GI/Abdominal GI/Abdominal Exam: Normal Bowel Sounds, Non Tender, Non Distended, Soft, No Organomegaly - Rectal Rectal Exam: Deferred - External Exam: Deferred - Extremities Extremities Exam: Normal Inspection - Back Back Exam: Normal Inspection - Neurological Neurological Exam: Alert, Oriented x 3, CN II-XII Intact, No Facial Droop, Speech Intact / Clear, Moves All Extremities Equally - Psychiatric Psychiatric Exam: Normal Affect - Integumentary Integumentary Exam: Normal Color Assessment and Plan - Patient Problems (1) Status post right knee replacement Current Visit: Yes Status: Acute Comment: Continue PT and OT. For DVT prophylaxis he is on Lovenox. We'll see physical therapy assessment tomorrow and then will decide whether he can be discharged home or switch to swing bed to continue physical therapy. Code(s): Z96.651 - Presence of right artificial knee joint (2) Respiratory arrest Current Visit: Yes Status: Acute Comment: It was more a hypoxic event that's resolved and no recurrence. Code(s): R09.2 - Respiratory arrest (3) Hypercholesterolemia Current Visit: No Status: Chronic Comment: Same med Code(s): E78.00 - Pure hypercholesterolemia, unspecified (4) Parkinsons Current Visit: No Status: Chronic Comment: Same medication Code(s): G20 - Parkinson's disease (5) Gastro-esophageal reflux Current Visit: No Status: Chronic Comment: Same medication Code(s): K21.9 - Gastro-esophageal reflux disease without esophagitis Qualifiers: (6) Coronary artery disease Current Visit: Yes Status: Acute Comment: Continue aspirin, there was a slight rise in his troponin this need to be followed up later on as an outpatient with his nurse school. He is asymptomatic. He is on Lipitor continue Code(s): I25.10 - Atherosclerotic heart disease of [place] coronary artery without angina pectoris (7) History of anxiety Current Visit: Yes Status: Acute Comment: We put him back on Xanax only at night and he is seemed to be doing okay without the morning dosage, since he will be started on baclofen I think we'll hold on restarting the Xanax in the morning. Code(s): Z86.59 - Personal history of other mental and behavioral disorders
[2018-09-08] MEDS ORDERED: CARISOPRODOL 350 MG TABLET PO PRN (18:36)
[2018-09-08] MEDS: ALPRAZolam Tab 0.25 MG TABLET PO SCH (20:32)
[2018-09-08] MEDS: ATORVASTATIN 40 MG TABLET PO SCH (20:33)
[2018-09-08] MEDS: OLANZapine Tab 5 MG TAB PO SCH (20:33)
[2018-09-09 05:19] LABS: BASOPHILS # (AUTO) 0.04 10*3/UL; BASOPHILS % (AUTO) 0.6 % (0-1); EOSINOPHILS # (AUTO) 0.25 10*3/UL; EOSINOPHILS % (AUTO) 3.7 % (0-8); Hematocrit [HCT] 26.4 % (42.0-52.0); Hemoglobin [HGB] 8.4 g/dL (14.0-18.0); LYMPHOCYTES # (AUTO) 1.41 10*3/uL; MEAN CORPUSCULAR HEMOGLOBIN 32.4 PG (27-31); MEAN CORPUSCULAR HGB CONC 31.8 g/dL (33-37); MEAN CORPUSCULAR VOLUME 101.9 FL (80-90); MEAN PLATELET VOLUME 9.7 FL (7.4-12.2); MONOCYTES # (AUTO) 0.87 10*3/UL (0.3-0.8); MONOCYTES % (AUTO) 12.9 % (5-15); NEUTROPHILS # (AUTO) 4.14 10*3/UL; NEUTROPHILS % (AUTO) 61.7 % (50-80); RED BLOOD COUNT 2.59 10^6/uL (4.70-6.10)
[2018-09-09 05:37] LABS: BLOOD UREA NITROGEN 13 mg/dL (7-22); BUN/CREATININE RATIO 14.44 (6-20)
[2018-09-09 06:15] LABS: PLATELET MORPHOLOGY COMMENT NORMAL MORPHOLOGY (NORM); RBC MORPHOLOGY COMMENT NORMAL MORPHOLOGY (NORM); WBC MORPHOLOGY COMMENT NORMAL MORPHOLOGY (NORM)
[2018-09-09] MEDS: FERROUS SULFATE 325 MG TABLET PO SCH (07:59)
[2018-09-09] MEDS: HYDROcodone-APAP 7.5 MG-325 MG TABLET PO PRN ×2 (08:04→18:56)
[2018-09-09] MEDS: Carbidopa/Levodopa 25/100mg Tab PO SCH ×3 (08:55→20:25)
[2018-09-09] MEDS: ASPIRIN EC 81 MG TABLET PO SCH (08:55)
[2018-09-09] MEDS: FAMOTIDINE 20 MG TABLET PO SCH ×2 (08:55→20:25)
[2018-09-09] MEDS: DOCUSATE 100 MG CAPSULE PO SCH ×2 (08:55→20:25)
[2018-09-09] MEDS: ENOXAPARIN SODIUM 30 MG/0.3 ML SYRINGE SUBCUT SCH ×2 (08:56→20:25)
[2018-09-09] MEDS: FLUoxetine 20 MG CAPSULE PO SCH (08:56)
[2018-09-09] MEDS: IMATINIB MESYLATE 100 MG PO SCH (09:20)
--- NOTE | 2018-09-09 10:47 | ORTHO.PROG ---
Last Taken Vital Signs: Vital Signs - Last Taken Temperature 97.5 F 09/09/18 09:00 Pulse Rate 84 09/09/18 09:00 Respiratory Rate 16 09/09/18 09:00 Blood Pressure 133/60 09/09/18 09:00 Pulse Ox 93 09/09/18 09:00 Subjective: Patient reports feeling dizzy this morning when he woke up, but was able to ambulate with PT without difficulties. He is having pain in the right knee. Denies any calf pain, CP, SOB, F/C. Objective: Laboratory Results 09/09/18 09/09/18 04:20 04:20 WBC 6.72 RBC 2.59 L Hgb 8.4 L Hct 26.4 L MCV 101.9 H MCH 32.4 H MCHC 31.8 L RDW Std Deviation 50.6 H RDW Coeff of Dm 14.0 Plt Count 186 MPV 9.7 Immature Gran % (Auto) 0.1 Neut % (Auto) 61.7 Lymph % (Auto) 21.0 [place] % (Auto) 12.9 Eos % (Auto) 3.7 Baso % (Auto) 0.6 Immature Gran # (Auto) 0.01 Neut # (Auto) 4.14 Lymph # (Auto) 1.41 [place] # (Auto) 0.87 H Eos # (Auto) 0.25 Baso # (Auto) 0.04 WBC Morphology Comment Normal morphology Plt Morphology Comment Normal morphology RBC Morph Comment Normal morphology Sodium 138 Potassium 3.5 L Chloride 104 Carbon Dioxide 29 Anion Gap 5 BUN 13 Creatinine 0.9 BUN/Creatinine Ratio 14.44 Glucose 95 Calculated Osmolality 285.0 Calcium 8.9 On exam, the patient is down in PT sleeping on the exam table, but is easily aroused. He is pale appearing, but is breathing nonlabored and is not in any acute distress. The dressing is clean/dry/intact. There are some friction blisters medial to the incision. No current drainage. AROM of right knee and ankle without difficulties. Negative calf tenderness. NV intact. Assessment: POD 4 from Right TKA revision. Patient continues to have pain in the right knee with muscle spasms from his flexion contracture that is had pre-operatively. Plan: * muscle spasms: start Soma * pain meds: continue hydrocodone * H/H dropped to 04/16, will have hospitalist address if needed * DVT ppx: lovenox while in hospital then transition to Xarelto 10mg 1 tablet daily x 12 days for DVT ppx; start ASA 81mg 1 tablet daily once Xarelto completed * Continue wearing IROM brace locked in -10 degrees of hyperextension while sleeping at night * WBAT with walker * continue PT per TKA protocol * Wound care: changed dressing to non-adhesive dressing; may discontinue dressing on POD 7 * discharge to swing bed * follow-up with orthopedics in 2 weeks as scheduled
--- NOTE | 2018-09-09 11:40 | PT.PROG ---
Progress Note Progress Note: S: pt reports he is doing well. O: nsg okay'd prior to PT. nursing was instructed in proper IROM brace at night. pt instructed to ambulate approx 70 feet with walker and CGA x 1 and cues for improved posture. pt silverlon was replaced and steri strips replaced. blistering and telfa placed over blisters and erika wrap. pt instructed in heat x 20 mins R knee, quad sets, heel slides, slr, SAQs, hip abd/ add, LAQs, Sit to stand x10 reps each. pt instructed in dressing with CGA x 1. pt ambulated approx 70 feet with walker and was returned back to chair with chair alarm activated and call light within reach. A: pt tolerated therapy well. blistering around incision so dressing change per PA. pt continues to benefit from skilled therapy. P: cont perPOC.
[2018-09-09] MEDS ORDERED: Sodium Chloride 0.9% 500 ML PRIMARY IV ONE (12:56)
--- NOTE | 2018-09-09 13:58 | PDOC(PROG) ---
Date of Service: 09/09/18 Time of Service: 13:58 Interval History: Subjective Patient is denying complaint. He has some pain in his right knee but otherwise he denying other symptoms there's no chest pain no shortness of breath no dizziness. Apparently had confusion last night he did receive though baclofen for the first time and that was discontinued. Objective : Data - Labs CBC and BMP: 09/09/18 04:20 09/09/18 04:20 Objective : Exam - General General Appearance: No Acute Distress, Cooperative - Head Head Exam: Normal Inspection - Eye Eye Exam: Normal Appearance - ENT ENT Exam: Normal Exam - Neck Neck Exam: Normal Inspection - Respiratory Respiratory Exam: Clear to Auscultation - Bilaterally - Cardiovascular Cardiovascular Exam: RRR - GI/Abdominal GI/Abdominal Exam: Normal Bowel Sounds, Non Tender, Non Distended, No Organomegaly - Rectal Rectal Exam: Deferred - External Exam: Deferred - Extremities Extremities Exam: Normal Inspection - Back Back Exam: Normal Inspection - Neurological Neurological Exam: Alert, CN II-XII Intact, No Facial Droop, Speech Intact / Clear, Moves All Extremities Equally - Psychiatric Psychiatric Exam: Normal Affect Assessment and Plan - Patient Problems (1) Status post right knee replacement Current Visit: Yes Status: Acute Comment: Continue PT and OT. Probably will switch him to swing bed pots blood transfusion today or tomorrow. Code(s): Z96.651 - Presence of right artificial knee joint (2) Respiratory arrest Current Visit: Yes Status: Acute Comment: He had hypoxic event that's resolved. Code(s): R09.2 - Respiratory arrest (3) Hypercholesterolemia Current Visit: No Status: Chronic Comment: Same med Code(s): E78.00 - Pure hypercholesterolemia, unspecified (4) Parkinsons Current Visit: No Status: Chronic Comment: Same medication Code(s): G20 - Parkinson's disease (5) Gastro-esophageal reflux Current Visit: No Status: Chronic Comment: Continue Pepcid Code(s): K21.9 - Gastro-esophageal reflux disease without esophagitis Qualifiers: (6) Coronary artery disease Current Visit: Yes Status: Acute Comment: He is on aspirin, Lipitor. He need follow-up with cardiology, he has seen Dr. rodriguez before. he Did have a slight rise in his troponin that went down quickly. May be secondary to hypoxic event though. Code(s): I25.10 - Atherosclerotic heart disease of [place] coronary artery without angina pectoris (7) History of anxiety Current Visit: Yes Status: Acute Comment: Continue current dosage of Xanax. Code(s): Z86.59 - Personal history of other mental and behavioral disorders (8) Postoperative anemia due to acute blood loss Current Visit: Yes Status: Acute Comment: His hemoglobin continued to trend down. And with history of coronary artery disease I think will give him a unit of blood. Repeat HB tomorrow. Code(s): D62 - Acute posthemorrhagic anemia (9) History of chronic myeloid leukemia Current Visit: Yes Status: Acute Comment: He is on Gleevec continue Code(s): Z85.6 - Personal history of leukemia
[2018-09-09] MEDS: POLYETHYLENE GLYCOL 3350 17 GM POWDER PO SCH (14:10)
[2018-09-09] MEDS ORDERED: Potassium Chloride Tab 10 MEQ TAB PO ONE (16:24)
[2018-09-09] MEDS: ATORVASTATIN 40 MG TABLET PO SCH (20:25)
[2018-09-09] MEDS: OLANZapine Tab 5 MG TAB PO SCH (20:25)
[2018-09-09] MEDS: ALPRAZolam Tab 0.25 MG TABLET PO SCH (20:25)
[2018-09-10 05:20] LABS: BASOPHILS # (AUTO) 0.04 10*3/UL; BASOPHILS % (AUTO) 0.6 % (0-1); EOSINOPHILS # (AUTO) 0.38 10*3/UL; Hematocrit [HCT] 30.7 % (42.0-52.0); Hemoglobin [HGB] 10.2 g/dL (14.0-18.0); LYMPHOCYTES # (AUTO) 1.76 10*3/uL; MEAN CORPUSCULAR HEMOGLOBIN 32.7 PG (27-31); MEAN CORPUSCULAR HGB CONC 33.2 g/dL (33-37); MEAN CORPUSCULAR VOLUME 98.4 FL (80-90); MEAN PLATELET VOLUME 9.9 FL (7.4-12.2); MONOCYTES % (AUTO) 14.1 % (5-15); NEUTROPHILS % (AUTO) 51.7 % (50-80); RED BLOOD COUNT 3.12 10^6/uL (4.70-6.10)
[2018-09-10 05:37] LABS: BLOOD UREA NITROGEN 11 mg/dL (7-22); BUN/CREATININE RATIO 15.71 (6-20)
[2018-09-10 06:13] LABS: PLATELET MORPHOLOGY COMMENT NORMAL MORPHOLOGY (NORM); RBC MORPHOLOGY COMMENT NORMAL MORPHOLOGY (NORM); WBC MORPHOLOGY COMMENT NORMAL MORPHOLOGY (NORM)
[2018-09-10] MEDS: HYDROcodone-APAP 7.5 MG-325 MG TABLET PO PRN ×2 (06:52→11:51)
[2018-09-10] MEDS: FERROUS SULFATE 325 MG TABLET PO SCH (06:52)
[2018-09-10 07:21] VITALS: BP 104/61; RESP 16; TEMP 97.2; O2SAT 96
[2018-09-10] MEDS: POLYETHYLENE GLYCOL 3350 17 GM POWDER PO SCH (08:52)
[2018-09-10] MEDS: IMATINIB MESYLATE 100 MG PO SCH (08:52)
[2018-09-10] MEDS: DOCUSATE 100 MG CAPSULE PO SCH (08:53)
[2018-09-10] MEDS: FAMOTIDINE 20 MG TABLET PO SCH (08:53)
[2018-09-10] MEDS: Carbidopa/Levodopa 25/100mg Tab PO SCH ×2 (08:53→14:03)
[2018-09-10] MEDS: ENOXAPARIN SODIUM 30 MG/0.3 ML SYRINGE SUBCUT SCH (08:54)
[2018-09-10] MEDS: FLUoxetine 20 MG CAPSULE PO SCH (08:54)
[2018-09-10] MEDS: ASPIRIN EC 81 MG TABLET PO SCH (08:54)
[2018-09-10] MEDS ORDERED: Potassium Chloride Tab 10 MEQ TAB PO SCH (09:00)
--- NOTE | 2018-09-10 10:25 | ORTHO.PROG ---
Last Taken Vital Signs: Vital Signs - Last Taken Temperature 97.2 F 09/10/18 07:20 Pulse Rate 72 09/10/18 07:20 Respiratory Rate 16 09/10/18 07:20 Blood Pressure 104/61 09/10/18 07:20 Pulse Ox 96 09/10/18 07:20 Subjective: POD 5 from Right TKA revision. Patient denies any dizziness, SOB, CP, or calf pain. He received blood yesterday and feels much better today. States pain is well controlled. Tolerating Soma well. Objective: Laboratory Results 09/09/18 09/10/18 09/10/18 13:12 04:40 04:40 WBC 6.38 RBC 3.12 L Hgb 10.2 L Hct 30.7 L MCV 98.4 H MCH 32.7 H MCHC 33.2 RDW Std Deviation 54.0 H RDW Coeff of Dm 15.4 H Plt Count 195 MPV 9.9 Immature Gran % (Auto) 0 Neut % (Auto) 51.7 Lymph % (Auto) 27.6 [place] % (Auto) 14.1 Eos % (Auto) 6.0 Baso % (Auto) 0.6 Immature Gran # (Auto) 0 Neut # (Auto) 3.30 Lymph # (Auto) 1.76 [place] # (Auto) 0.90 H Eos # (Auto) 0.38 Baso # (Auto) 0.04 WBC Morphology Comment Normal morphology Plt Morphology Comment Normal morphology RBC Morph Comment Normal morphology Sodium 140 Potassium 3.8 Chloride 106 Carbon Dioxide 29 Anion Gap 5 BUN 11 Creatinine 0.7 BUN/Creatinine Ratio 15.71 Glucose 91 Calculated Osmolality 288.0 Calcium 9.0 Blood Type O POSITIVE Antibody Screen Negative Crossmatch See Detail On exam, the patient is A&O x 3. He is much more alert today and skin is pinker in appearance. Negative calf tenderness. Dressing clean/dry/intact. Friction blisters medial to incision, no change from yesterday. NV intact. Assessment: POD 5 from Right TKA revision overall doing well after received blood transfusion yesterday. Plan: * DVT ppx: discharge on Xarelto and SCDs * Pain meds: discharge on Hydrocodone 7.5/325mg * Muscle spasms: discharge on Soma * IROM brace locked in -10 degrees of extension at night * WBAT with walker * continue PT as an outpatient * abx ppx: discharge on Keflex 500mg 1 tab TID x 10 days * discharge home once cleared by hospitalist and PT * follow-up in 2 weeks with orthopedics as scheduled
--- NOTE | 2018-09-10 11:12 | DCSUMMARY ---
Hospitalization Summary Admit Date: 09/05/2018 Discharge Date: 09/10/18 Hospital Course: Discharge diagnoses 1. Status post right knee revision surgery 2. Hypoxic event postsurgery recovered, likely medication effect 3. History of Parkinson disease 4. History of coronary artery disease with previous stent 5. History of anxiety 6. 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 History of right knee replacement 8. Anemia secondary to postoperative blood loss status post blood transfusion Hospital course This is a 73 years old male with medical history significant for history of Parkinson disease, anxiety, chronic myeloid leukemia on Gleevec, history of coronary artery disease with previous stent who came into the hospital to have revision of right knee replacement and was done by Dr. Orlando. Hospitalist service were consulted for management of medical issues. In the immediate postoperative course the patient had a hypoxic event and a code was called but actually there was no evidence of an arrest or a need for chest compression, the patient was given Narcan and he woke up and the saturation normalized. the patient did have some respiratory acidosis that responded to BiPAP treatment. Patient was put on his medication and started physical therapy. I saw him later on during his hospital stay, we continued with physical therapy. He did have anemia that required 1 unit of blood. There was a slight rise in his troponin to 0.09 and went down quickly. Patient have seen a metal tube cutter before and I suggested that he follow-up with his metal tube cutter as scheduled. There was no chest pain or shortness of breath. Initially he was weak and we thought that he will need swing bed admission however he seemed to improved and the physical therapist cleared him to go home so he was discharged home. There was also one event when his given baclofen that he became confused that night and the baclofen was discontinued and he recovered. Discharge instruction Diet regular Activity as started Medications Current Medication(s) Medication Instructions Recorded Confirmed Type aspirin 81 mg tablet,delayed 81 mg PO QDAY 06/21/18 09/04/18 History release atorvastatin 40 mg tablet 40 mg PO QDAY #30 tab 06/21/18 09/05/18 Rx carbidopa 25 mg-levodopa 100 mg 3 tab PO TID #270 tab 06/21/18 09/05/18 Rx tablet cholecalciferol (vitamin D3) 2,000 2,000 unit PO QDAY 06/21/18 09/05/18 History unit capsule ferrous sulfate 325 mg (65 mg 325 mg PO QDAY tab 06/21/18 09/05/18 History iron) tablet fluoxetine 20 mg capsule 60 mg PO QDAY #90 cap 06/21/18 09/05/18 Rx folic acid 400 mcg tablet 0.4 mg PO QDAY 06/21/18 09/05/18 History imatinib 100 mg tablet 300 mg PO QDAY tab 06/21/18 09/05/18 History multivitamin tablet 1 tab PO QAM 06/21/18 09/05/18 History ranitidine 150 mg tablet 150 mg PO BID #60 tab 06/21/18 09/05/18 Rx vitamin B complex tablet 1 tab PO QDAY 06/21/18 09/05/18 History alprazolam 2 mg tablet 2 mg PO BID #60 tab 08/08/18 09/05/18 Rx Cephalexin [Keflex] 500 mg PO Q8HR #30 cap 09/05/18 Rx Hydrocodone/Acetaminophen 1 - 2 ea PO Q4-6H PRN #70 tab 09/05/18 Rx [Hydrocodon-Acetaminoph 7.5-325] Rivaroxaban [Xarelto] 10 mg PO DAILY #12 tab 09/05/18 Rx ALPRAZolam Tab [Xanax Tab] 0.25 mg PO BEDTIME tab 09/10/18 Rx Aspirin EC 81 mg PO DAILY tab 09/10/18 Rx Carisoprodol [Soma] 350 mg PO TID PRN #30 tab 09/10/18 Rx Ferrous Sulfate [Feosol] 325 mg PO DAILY@0700 tab 09/10/18 Rx OLANZapine Tab [ZyPREXA Tab] 5 mg PO BEDTIME tab 09/10/18 Rx Follow-up with PCP 1-2 weeks, follow-up with cardiology Condition at discharge was stable for discharge Exam - Vitals Vital Signs: Vital Signs Temperature 97.2 F Temperature Source Temporal Artery Scan Pulse Rate [Telemetry] 88 Pulse Rate [Apical] 74 Pulse Rate [Pulse Oximeter] 72 Pulse Rate 74 Respiratory Rate 16 Blood Pressure [Right Arm] 131/47 Blood Pressure [Left Arm] 104/61 Blood Pressure 131/47 Pulse Ox 96 Oxygen Flow Rate 2 Oxygen Delivery Method Nasal Cannula Height 5 ft 6 in Weight 181 lb 3.2 oz - General General Appearance: No Acute Distress, Cooperative - Head Head Exam: Normal Inspection - Eye Eye Exam: POSITIVE: Normal Appearance - ENT ENT Exam: POSITIVE: Normal Exam - Neck Neck Exam: Normal Inspection - Respiratory Respiratory Exam: POSITIVE: Clear to Auscultation - Bilaterally - Cardiovascular Cardiovascular Exam: POSITIVE: RRR - GI/Abdominal GI/Abdominal Exam: POSITIVE: Normal Bowel Sounds, Non Tender, Non Distended, Soft, No Organomegaly - Rectal Rectal Exam: POSITIVE: Deferred - External Exam: POSITIVE: Deferred - Extremities Extremities Exam: POSITIVE: Normal Inspection - Back Back Exam: POSITIVE: Normal Inspection - Neurological Neurological Exam: POSITIVE: CN II-XII Intact, No Facial Droop, Speech Intact / Clear, Moves All Extremities Equally - Psychiatric Psychiatric Exam: POSITIVE: Normal Affect Patient Problems - Patient Problem List (1) Status post right knee replacement Status: Acute Code(s): Z96.651 - Presence of right artificial knee joint Category: Surgical (2) Respiratory arrest Status: Acute Code(s): R09.2 - Respiratory arrest Category: Medical (3) Hypercholesterolemia Status: Chronic Code(s): E78.00 - Pure hypercholesterolemia, unspecified Category: Medical (4) Parkinsons Status: Chronic Code(s): G20 - Parkinson's disease Category: Medical (5) Gastro-esophageal reflux Status: Chronic Code(s): K21.9 - Gastro-esophageal reflux disease without esophagitis Category: Medical (6) Coronary artery disease Status: Acute Code(s): I25.10 - Atherosclerotic heart disease of [place] coronary artery without angina pectoris Category: Medical (7) History of anxiety Status: Acute Code(s): Z86.59 - Personal history of other mental and behavioral disorders Category: Medical (8) Postoperative anemia due to acute blood loss Status: Acute Code(s): D62 - Acute posthemorrhagic anemia Category: Medical (9) History of chronic myeloid leukemia Status: Acute Code(s): Z85.6 - Personal history of leukemia Category: Medical
--- NOTE | 2018-09-10 11:27 | PT.PROG ---
Progress Note Progress Note: S: pt reports he is doing well. pt would like to go home and is on board with that plan O: nsg okay'd prior to PT. pt instructed to ambulate 150 feet around therapy gym CGA x 1 and walker with few cues for technique. pt instructed in sit to stands x 10 reps with CGA x 1, pt bleeding from incision so redressed and nursing will redress it. pt instructed in SAQs, SLR, hip abd/add, 4 way ankle YTB , quad sets, heel slides all x 10 reps. pt instructed to ambulate back to room with CGA x 1 with walker and w/c f/u . pt left in chair with chair alarm in place and call light within reach. A: pt tolerated therapy well. pt is safe to return home as long as is ok with being present 14/03. would benefit from outpatient PT. P: anticipate DC from PT. would benefit from outpatient PT.
[2018-09-10] MEDS ORDERED: HYDROcodone-APAP 7.5 MG-325 MG TABLET PO ONE (13:50)
--- NOTE | 2018-09-11 10:19 | OT AM DAY ---
Diagnosis : Right Total Knee Arthroplasty AM - Occupational Therapy S: The patient reports that he may be going swingbed this weekend. O: Today the patient was able to doff sock with gas pipe layer and don sock with min assist. Secondary to his Parkinson's, the patient has a little bit of difficulty with this. We also practiced lower extremity dressing with the gas pipe layer. A: The patient would benefit from more sessions as it does take him some increased time to process through use of adaptive devices. P: Continue seeing patient BID during the week and one time per day over the weekend for upper extremity strengthening, ADLs, and overall functional mobility. KAREN
--- NOTE | 2018-09-14 10:34 | CRNA.PROGR ---
Anesthesia Note - Progress Notes Anesthesia Progress Note: Late entry. 1mg Ativan was given in preop, while the remaining 1mg was wasted in PACU. As per Simon Centeno RN and myself. It was shown on the anesthesia record and verbally agreed upon with Simon CARMONA, but not entered in the Pyxis. Lori RINCON
== END 2018-09-10 14:00 | disposition home or self-care (01) | DRG 467 ==
LOC: OPS 05:56 → MED/SURG 12:54 → ICU 14:50 → MED/SURG 09-06 09:11
PROVIDERS: ADMIT Orthopaedic Surgery; ATTEND Internal Medicine